=== PATIENT | female | born 1975 | race Caucasian/White ===

== ENCOUNTER 2024-09-07 15:48 | Emergency (ER) | payer OTHER, SELFPAY ==
[2024-09-07 15:48] VITALS: PULSE 133
[2024-09-07 15:49] VITALS: BP 157/100; PULSE 133; RESP 22; TEMP 37; O2SAT 96; BMI 54.8
[2024-09-07 16:06] VITALS: TEMP 37.6
--- NOTE | 2024-09-07 16:26 | ED.VIS.FEGU ---
HPI HPI - Female History of Present Illness Chief Complaint: Female C/O Informant: patient Pain Pain: Positive for Vulvar Pain Onset: Days (5) Context: Gradual Onset Timing: Continuous Quality: Positive for Aching Location: - (Right inguinal area) Worsened by: - (Palpation) Associated Symptoms Associated Symptoms: Negative for Dysuria, Frequency or Urgency Narrative Narrative: Patient presents with abscess and drainage from her right inguinal area. Patient states this has been getting worse over the past 5 days. Patient states that her pain is constant. Patient states her pain is worse with any palpation. Patient admits to a fever of 101.7. The patient also admits to recent cough and bodyaches. Patient denies any dysuria or hematuria. Patient denies any nausea or vomiting. Patient admits to a mild cough. PFSH PFSH Medical History no medical history no medical history Home Medications ?Medication ?Instructions ?Recorded ?Last Taken ?Type cephalexin 500 mg capsule 500 mg PO Q6 #40 CAPSULES 09/07/24 Unknown Rx sulfamethoxazole 800 1 tab PO BID #20 TABLETS 09/07/24 Unknown Rx mg-trimethoprim 160 mg tablet Allergy/AdvReac Type Severity Reaction Status Date / Time No Known Allergies Allergy Verified 09/07/24 15:48 Surgical History (Updated 09/07/24 @ 16:[address] Basil Snowden DO) Hx of tonsillectomy Hx of tubal ligation Social History Smoking Status: Former smoker ROS ROS ED Constitutional Constitutional ED: Reports fever(s); Denies chills Eyes Eyes: Denies blurry vision or change in vision ENT ENT ED: Denies rhinorrhea or sore throat Cardiovascular Cardiovascular: Denies chest pain or palpitations Respiratory/Chest Respiratory/Chest: Reports cough; Denies dyspnea Gastrointestinal Gastrointestinal: Denies nausea or vomiting Genitourinary Genitourinary ED: Denies dysuria or hematuria Musculoskeletal Musculoskeletal: Reports myalgias; Denies back pain or neck pain Integumentary Reports abscess; Denies rash Neurologic Neurologic: Reports headache(s); Denies weakness Allergic/Immunologic Allergic/Immunologic ED: Denies mouth swelling or urticaria EXAM Physical Exam Const Vital Signs: 09/07/24 15:48 09/07/24 15:49 09/07/24 16:06 Temperature 98.6 F 99.6 F H Temperature Source Oral Oral Pulse Rate 133 H 133 H Respiratory Rate 22 H Blood Pressure 157/100 H Blood Pressure Mean 119 Pulse Ox 96 Oxygen Delivery Method Room Air 09/07/24 18:00 Temperature 99.8 F H Temperature Source Axillary Pulse Rate 109 H Respiratory Rate 18 Blood Pressure 139/90 H Blood Pressure Mean 106 Pulse Ox 97 Oxygen Delivery Method Room Air Positive well nourished and well developed General Appearance ED: well developed and NAD HEENT Reports moist mucous membranes Neck supple and no JVD Resp normal respiratory effort and clear to auscultation bilaterally Cardio regular rate and regular rhythm GI soft to palpation, non-tender and non-distended Narrative: There is tenderness, erythema, and induration in the right labia and inguinal skin fold. There is an open area that is draining minimal amount of purulent drainage. There is no fluctuance. Neuro oriented x3, CN's II-XII intact bilaterally and no sensory deficits noted Sensorium / Orientation: alert Motor Exam: strength 5/5 throughout Psych mental status grossly normal MDM MDM MDM Narrative Medical decision making narrative: Differential diagnosis includes abscess, sepsis, and cellulitis. CBC will be obtained to assess for leukocytosis and anemia. Basic metabolic profile will be obtained to assess for electrolyte abnormality and renal function. Serum lactate will be obtained to assess for sepsis. Wound cultures will be obtained to assess for wound infection. Lab Data Attestation: I reviewed the patient's lab results. Lab results narrative: CBC was reviewed. There is a mild leukocytosis of 15.3. The remainder is within normal limits. Basic metabolic profile was reviewed. Sodium was slightly low at 132 and chloride was slightly low at 97. The remainder was within normal limits. Serum lactate was reviewed and was normal at 2.0. Labs: Laboratory Results - last 24 hr 09/07/24 09/07/24 09/07/24 17:10 17:10 18:00 WBC Cancelled 15.3 H Corrected WBC Cancelled RBC Cancelled 4.55 Hgb Cancelled 13.3 Hct Cancelled 40.3 MCV Cancelled 88.6 MCH Cancelled 29.2 MCHC Cancelled 33.0 RDW Std Deviation Cancelled 45.4 H RDW Coeff of Jared Cancelled 14.0 Plt Count Cancelled 213 MPV Cancelled 11.2 Immature Gran % (Auto) Cancelled 0.500 Neut % (Auto) Cancelled 81.2 H Lymph % (Auto) Cancelled 8.3 L [place] % (Auto) Cancelled 8.2 Eos % (Auto) Cancelled 1.2 Baso % (Auto) Cancelled 0.6 Absolute Neuts (auto) Cancelled 12.4 H Absolute Lymphs (auto) Cancelled 1.27 Total Counted Cancelled Neutrophils % (Manual) Cancelled Band Neutrophils % Cancelled Lymphocytes % (Manual) Cancelled Monocytes % (Manual) Cancelled Eosinophils % (Manual) Cancelled Basophils % (Manual) Cancelled Metamyelocytes % Cancelled Myelocytes % Cancelled Promyelocytes % Cancelled Blast Cells % Cancelled Plasma Cell % (Manual) Cancelled Other Cells % Cancelled Nucleated RBC % Cancelled 0 Nucleated RBCs/100 WBC Cancelled Differential Comment Cancelled Diff Path Review Cancelled Hypersegmented Neuts Cancelled Atypical Lymphocytes Cancelled Reactive Lymphocytes Cancelled Smudge Cells Cancelled Toxic Granulation Cancelled Toxic Vacuolation Cancelled Dohle Bodies Cancelled [place] Rods Cancelled Platelet Estimate Cancelled Plt Morphology Comment Cancelled RBC Morphology Cancelled Cancelled Polychromasia Cancelled Hypochromasia Cancelled Basophilic Stippling Cancelled Anisocytosis Cancelled Microcytosis Cancelled Macrocytosis Cancelled Spherocytes Cancelled Sickle Cells Cancelled Target Cells Cancelled Tear Drop Cells Cancelled Ovalocytes Cancelled Stomatocytes Cancelled [place] Bodies Cancelled [place] Cells Cancelled Bite Cells Cancelled Crenated Cell Cancelled Acanthocytes (Spur) Cancelled Rouleaux Cancelled Schistocytes Cancelled Sodium 132 L Potassium 4.1 Chloride 97 L Carbon Dioxide 21.5 Anion Gap 14 BUN 6 Creatinine 0.58 L Estim Creat Clear Calc 152.93 Est GFR (MDRD) Non-Af 110 BUN/Creatinine Ratio 10.2 Glucose 127 H Lactic Acid Cancelled 2.0 Calcium 9.1 Treatment and Re-Evaluation Narrative: Patient was given IV fluids, Bactrim, and Ancef here. Patient's heart rate improved. Patient was given a dose of Tylenol. Patient was advised of her findings. Patient was given a prescription for Keflex and Bactrim. Patient was instructed to continue using warm compresses. Patient was instructed to follow-up with her primary care physician in 5 to 7 days. Patient understood and was agreeable with the plan. All questions were answered. Discharge Plan Triage Chief Complaint: Female C/O ED Provider: Basil Snowden Dx/Rx/DC Orders Clinical Impression: Abscess, Cellulitis Instructions: ED Abscess Antibiotic Treatment Only Prescriptions: New sulfamethoxazole-trimethoprim 800-160 mg tablet 1 tab PO BID Qty: 20 0RF cephalexin 500 mg capsule 500 mg PO Q6 Qty: 40 0RF Primary Care Provider: Care Physician,No Primary Referrals: Naresh Pillai MD [Med Staff - Pt Skilled] - 5-7 Days Print Language: [place]ian Disposition Disposition: Home, Self Care
[2024-09-07] MEDS: 0.9% Normal Saline (1000mL) 1,000 ML 1000 ML IV (17:17)
[2024-09-07] MEDS: Smz/Tmp Ds Tablet 1 TABLET PO (17:17)
[2024-09-07] MEDS: Cefazolin 1 GM/50 ML BAG IV (17:20)
[2024-09-07 18:00] VITALS: BP 139/90; PULSE 109; RESP 18; TEMP 37.7; O2SAT 97
[2024-09-07 18:03] LABS: Anion Gap 14 (5-15); BUN 6 mg/dL (4-19); BUN/Creat Ratio 10.2 RATIO (10-20); Calcium,Total 9.1 mg/dL (7.6-11.0); Carbon Dioxide 21.5 mmol/L (21.0-32.0); Chloride 97 mmol/L (98-108); Creatinine, Serum 0.58 mg/dL (0.70-1.20); EST Glomerular Filtration Rate 110 (>60); Estimated Creatinine Clearance 152.93 ml/min (50-250); Glucose 127 mg/dL (70-99); Potassium 4.1 mmol/L (3.3-5.1); Sodium Level 132 mmol/L (133-145)
[2024-09-07 18:11] LABS: Absolute Lymphocyte Count 1.27 X10^3/uL (0.83-4.51); Absolute Neutrophil Count 12.4 X10^3/uL (2.0-7.7); Basophil# 0.09 X10^3/uL; Basophil% 0.6 % (0-1); Eosinophil# 0.18 X10^3/uL; Eosinophils% 1.2 % (0-5); Hematocrit 40.3 % (37-47); Hemoglobin 13.3 g/dL (12.0-15.0); Lymphocyte # 1.27 X10^3/ul (0.83-4.51); Lymphocyte % 8.3 % (19-41); Mean Corpuscular Hgb 29.2 pg (27.0-32.0); Mean Corpuscular Volume 88.6 fL (81-99); Mean Platelet Vol. 11.2 fl (6.2-12.0); Monocyte# 1.25 X10^3/uL; Monocyte% 8.2 % (0-10); NRBC Flagged by Analyzer 0 % (0-5); Neutrophil # 12.44 X10^3/uL (2.7-7.7); Neutrophil % 81.2 % (47-70); Platelet Count 213 K/mm3 (150-450); RBC Distribution Width SD 45.4 fl (35.1-43.9); Red Blood Count 4.55 M/mm3 (4.2-5.4); White Blood Count 15.3 K/mm3 (4.4-11.0)
[2024-09-07] MEDS: Acetaminophen 500 MG Tablet 1000 MG PO (18:36)
[2024-09-07 19:17] VITALS: BP 143/77; PULSE 118; RESP 20; TEMP 39.5; O2SAT 94
== END 2024-09-07 19:29 | disposition home or self-care (01) ==
PROVIDERS: Emergency Provider Emergency Medicine; Visit Provider Emergency Medicine
DX: L02.214 Cutaneous abscess of groin (principal); Z87.891 Personal history of nicotine dependence
CPT/HCPCS: 80048; 83605; 85025; 87070; 87077; 87186; 87205; 96361; 96365; 99285; A4216